=== PATIENT | female | born 1995 | race African-American/Black ===

== ENCOUNTER 2017-06-22 00:18 | Inpatient (IN) | payer MEDICAID, OTHER ==
[~2017-06-22] VITALS: Ht 162.6 cm; Wt 73.9 kg
[~2017-06-22 00:18] MED LIST: LISD30 PO; MONT4CHW2 CHEW; PROZ20CA11 PO; VENTAER INH
[2017-06-22 00:34] VITALS: BP 120/68; PULSE 88; RESP 20; TEMP 98.2; O2SAT 98
[2017-06-22 00:41] VITALS: BP 122/77; PULSE 82; RESP 20; O2SAT 98
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
[2017-06-22 02:05] LABS: AUTOMATED NEUTROPHIL # 6.3 TH/MM3 (1.8-7.7); BASOPHIL % 0.5 % (0.0-2.0); EOSINOPHIL # 0.1 TH/MM3 (0-0.4); EOSINOPHIL % 1.2 % (0.0-4.0); HEMATOCRIT 37.4 % (35.0-46.0); HEMOGLOBIN 12.9 GM/DL (11.6-15.3); LYMPH % 13.5 % (9.0-44.0); LYMPHOCYTE # 1.1 TH/MM3 (1.0-4.8); MEAN CELL VOLUME 80.3 FL (80.0-100.0); MEAN CORPUSCULAR HEMOGLOBIN 27.8 PG (27.0-34.0); MEAN CORPUSCULAR HGB CONC 34.6 % (32.0-36.0); MEAN PLATELET VOLUME 9.3 FL (7.0-11.0); MONOCYTE # 0.6 TH/MM3 (0-0.9); NEUT % 77.8 % (16.0-70.0); PLATELET COUNT 209 TH/MM3 (150-450); RED BLOOD COUNT 4.65 MIL/MM3 (4.00-5.30); RED CELL DISTRIBUTION WIDTH 13.3 % (11.6-17.2)
[2017-06-22 02:31] LABS: ALBUMIN 3.3 GM/DL (3.4-5.0); ALT (GPT) 28 U/L (9-42); AST (GOT) 27 U/L (16-38); BICARBONATE 20.8 MEQ/L (21.0-32.0); BLOOD UREA NITROGEN 6 MG/DL (7-18); CALCIUM 8.8 MG/DL (8.5-10.1); CHLORIDE 108 MEQ/L (98-107); CREATININE 0.69 MG/DL (0.50-1.00); GLOMERULAR FILTRATION RATE 131 ML/MIN (>89); GLUCOSE,RANDOM 85 MG/DL (74-106); SODIUM (NA) 138 MEQ/L (136-145)
[2017-06-22 02:42] LABS: ALKALINE PHOSPHATASE 62 U/L (45-117); TOTAL BILIRUBIN ADULT 0.5 MG/DL (0.2-1.0); TOTAL PROTEIN 7.7 GM/DL (6.4-8.2)
[2017-06-22] MEDS ORDERED: LORazepam 1 MG TAB PO PRN (09:15)
[2017-06-22] MEDS ORDERED: NICOTINE 21 MG/24 HR PATCH T-DERMAL SCH (09:15)
[2017-06-22] MEDS ORDERED: LORazepam 2 MG/ML VIAL IM PRN ×2 (09:15)
[2017-06-22] MEDS ORDERED: ACETAMINOPHEN 325 MG TAB PO PRN (09:15)
[2017-06-22] MEDS ORDERED: MAGNESIUM HYDROXIDE SUSP 30 ML CUP PO PRN (09:15)
[2017-06-22] MEDS ORDERED: ALUMINUM/MAGNESIUM/SIMETH 30 ML CUP PO PRN (09:15)
[2017-06-22] MEDS ORDERED: LORazepam 0.5 MG TAB PO PRN (09:15)
[2017-06-22 09:49] LABS: BACTERIA, URINE RARE /hpf; BILIRUBIN, URINE NEG (NEG); BLOOD, URINE NEG (NEG); GLUCOSE,URINE NEG (NEG); KETONE, URINE NEG (NEG); MUCUS URINE FEW /lpf (OCC); NITRITE,URINE NEG (NEG); SQUAMOUS EPITHELIAL CELL URINE 2 /hpf (0-5); URINE COLOR YELLOW (YELLW/STRAW); URINE LEUKOCYTE ESTERASE NEG (NEG)
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
[2017-06-22 14:22] VITALS: BP 120/72; PULSE 76; RESP 18; O2SAT 99
[2017-06-22 14:45] VITALS: BP 110/61; PULSE 75; RESP 15; TEMP 98.9; O2SAT 100
--- NOTE | 2017-06-22 15:22 | RADRPT ---
EXAM DATE/TIME: 06/22/2017 13:45 [place] COMPARISON: No previous studies available for comparison. INDICATIONS : Dating LAB(S): [id number] MEDICAL HISTORY : . SURGICAL HISTORY : Tonsillectomy. ENCOUNTER: Initial ACUITY: PAIN SCORE: 0/10 LOCATION: Bilateral pelvis MEASUREMENTS: UTERUS: 14.9 x 9.2 x 6.5 cm ENDOMETRIAL STRIPE: 11 mm RIGHT OVARY: 4.0 x 5.0 x 2.2 cm LEFT OVARY: 2.7 x 0.9 x 1.8 cm CROWN RUMP LENGTH: 56.6 mm = 11 WKS 6 DAYS FHR: 153 BPM FINDINGS: UTERUS: Viable IUP 11 week 6 day gestation with identifiable cardiac activity. RIGHT OVARY: 1.6 cm right ovarian cyst. LEFT OVARY: Ovary contains no mass or significant cystic lesion. MISCELLANEOUS: No free fluid. CONCLUSION: Viable IUP 11 weeks 6 day gestation. Conor Nixon MD FACR on June 22, 2017 at 15:18 Board Certified Radiologist. This report was verified electronically.
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
[2017-06-23 05:30] VITALS: BP 110/62; PULSE 82; RESP 16; TEMP 97.7; O2SAT 99
[2017-06-23 08:46] LABS: BICARBONATE 26.1 MEQ/L (21.0-32.0); BLOOD UREA NITROGEN 8 MG/DL (7-18); CALCIUM 8.8 MG/DL (8.5-10.1); CHLORIDE 103 MEQ/L (98-107); CREATININE 0.72 MG/DL (0.50-1.00); GLOMERULAR FILTRATION RATE 125 ML/MIN (>89); GLUCOSE,RANDOM 105 MG/DL (74-106); SODIUM (NA) 136 MEQ/L (136-145)
[2017-06-23 08:48] LABS: CHOLESTEROL 204 MG/DL (120-200); CHOLESTEROL/ HDL RATIO 2.84 RATIO; HDL CHOLESTEROL 71.6 MG/DL (40.0-60.0); LDL CHOLESTEROL 115 MG/DL (0-99); TRIGLYCERIDES 89 MG/DL (42-150)
--- NOTE | 2017-06-23 10:21 | HHI.PR ---
Addendum to Inpatient Note Addendum Reason: Additional Documentation Additional Information OB evaluated patient this morning. Patient doing well. Referred patient to [facility] for care. Katy Abreu Dr., MD R1 June 23, 2017 10:21
[2017-06-23] MEDS ORDERED: PREN29TA PO (14:31)
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
[2017-06-23 16:39] LABS: HEMOGLOBIN A1C 5.3 % (4.3-6.0)
[2017-06-23 16:54] VITALS: BP 136/61; PULSE 83; RESP 18; TEMP 98.2; O2SAT 100
== END 2017-06-23 17:40 | disposition home or self-care (01) | DRG 781 ==
LOC: NEPC 00:18 → NEDA 09:16 → H260 14:40
PROVIDERS: ADMIT Psychiatry & Neurology Psychiatry; ATTEND Psychiatry & Neurology Psychiatry
DX: O99.341 Other mental disorders complicating pregnancy, first trimester (principal); O99.321 Drug use complicating pregnancy, first trimester; F43.25 Adjustment disorder with mixed disturbance of emotions and conduct; F12.90 Cannabis use, unspecified, uncomplicated; O09.31 Supervision of pregnancy with insufficient antenatal care, first trimester; Z3A.11 11 weeks gestation of pregnancy
CPT/HCPCS: 76801; 80048; 80053; 80061; 80307; 81001; 83036; 84443; 84702; 84703; 85025; 86850; 86900; 86901